=== PATIENT | male | born 1950 | race Caucasian/White ===

== ENCOUNTER → 2025-01-31 | Outpatient (CLI) | payer OTHER ==
--- NOTE | 2025-01-31 10:34 | HMCIMG ---
MR ANKLE RIGHT WO HISTORY: Right ankle pain COMPARISON: None TECHNIQUE: MRI of the right ankle was performed utilizing multiple pulse sequences in axial, coronal and sagittal planes. Patient was not given contrast through intravenous route. FINDINGS: Normal signal intensity is seen of the visualized bony structure. No appreciable amount of joint effusion is seen. No evidence of soft tissue swelling is seen. There is fluid noted within the tendon sheath of flexor hallucis longus tendon consistent with tenosynovitis. There is thickening of the Achilles tendon consistent with tendinosis. No rupture or Achilles tendon is seen. Posterior tibialis, flexor hallucis longus and flexor digitorum longus tendons are intact. The peroneus longus and brevis tendons are intact. Anterior talofibular ligament and calcaneofibular ligaments are intact. IMPRESSION: 1. 100 suggestive of tenosynovitis of the flexor hallucis longus tendon. Achilles tendinosis. DJD.
== END | disposition home or self-care (01) ==
LOC: RAH 08:10
PROVIDERS: ATTEND Internal Medicine Rheumatology
DX: M19.071 Primary osteoarthritis, right ankle and foot (principal); M25.571 Pain in right ankle and joints of right foot
CPT/HCPCS: 73721

== ENCOUNTER 2025-02-16 11:33 | Emergency (ER) | payer OTHER ==
[~2025-02-16] VITALS: Ht 175.3 cm; Wt 77.1 kg
--- NOTE | 2025-02-16 12:55 | HMCIMG ---
RIGHT THIRD FINGER RADIOGRAPHS - 3 VIEWS INDICATION: Third digit laceration COMPARISON: None FINDINGS/IMPRESSION: AP, lateral, and oblique views. Slightly displaced nominally comminuted transverse fracture through the proximal shaft of the third distal phalanx, but no evidence for joint subluxation.
[2025-02-16 13:42] LABS: BASOPHILS # (AUTO) 0.04 K/uL (0.00-0.20); BASOPHILS % (AUTO) 0.4 % (0.0-5.0); EOSINOPHILS % (AUTO) 2.2 % (0.0-8.0); HEMATOCRIT 37.5 % (42-54); IMMATURE GRANULOCYTE ABSOLUTE 0.06 K/uL (0-1); LYMPHOCYTES # (AUTO) 2.8 K/uL (1.0-4.8); LYMPHOCYTES % (AUTO) 31.3 % (21.0-51.0); MEAN CORPUSCULAR HEMOGLOBIN 28.2 pg (27.0-33.0); MEAN CORPUSCULAR HGB CONC 31.5 g/dL (32.0-36.0); MEAN CORPUSCULAR VOLUME 89.7 fL (79-99); MONOCYTES # (AUTO) 1.1 K/uL (0.1-1.0); MONOCYTES % (AUTO) 11.7 % (3.0-13.0); NEUTROPHILS # (AUTO) 4.8 K/uL (1.8-7.7); NEUTROPHILS % (AUTO) 53.7 % (40.0-77.0); PLATELET COUNT (AUTO) 224 K/uL (130-400); RED BLOOD CELL COUNT(AUTO) 4.18 MIL/uL (4.50-6.20)
--- NOTE | 2025-02-16 13:52 | ERN ---
General Chief Complaint: Laceration/Avulsion Stated Complaint: LACERATION, POSSIBLE BROKEN FINGER Time Seen by MD: 11:33 Source: patient History of Present Illness Initial Comments Patient is a 74-year-old male coming in to be evaluated for finger fracture evaluation. Per patient he was evaluated five days ago and was told he had a fracture of his right middle finger. There was a laceration present was repaired patient went to be evaluated by Dr. Roldan software implementation specialist but was told he was not able to be seen. Patient is here for further evaluation. Allergies: Coded Allergies: No Known Drug Allergies (Unverified Allergy, Unknown, 02/16/25) Past Medical History Past Medical History: Hypertension Past Surgical History: None ROS Dictation CONSTITUTIONAL: No chills, no fever, no weakness, no diaphoresis, no malaise. HEAD/FACE: No signs of trauma. EENT: No eye pain, no blurred vision, no tearing, no double vision, no ear pain, no ear discharge, no nose pain, no nasal congestion, no throat pain, no throat swelling, no mouth pain. RESPIRATORY: No cough, no orthopnea, no SOB, no stridor, no wheezing. CARDIOVASCULAR: No chest pain, no edema, no palpitations, no syncope. GASTROINTESTINAL/ABDOMINAL: No abdominal pain, no constipation, no diarrhea, no nausea, no vomiting. GENITOURINARY: No abnormal discharge, no dysuria, no frequent urination, no hematuria. No complaints of pain in the genitals. MUSCULOSKELETAL: No back pain, no gout, joint pain, no joint swelling, no muscle pain, no muscle stiffness, no neck pain. INTEGUMENTARY: No change in color, no change in hair/nails, no dryness, no lesion, no lumps, no rash. NEUROLOGICAL/PSYCH: No anxiety, not depressed, no emotional problem, no headache, no numbness, no pre-existing deficit, no history of seizures, no margaret mors, no weakness. HEMATOLOGIC/LYMPHATIC: Not anemic, no history of blood clots, no apparent bleeding, no bruising, glands not swollen. All Systems Negative, Except as Noted. Physical Exam Physical Exam Dictation VITAL SIGNS: Reviewed. GENERAL APPEARANCE: Alert, oriented x3, no acute distress, obese. HEAD AND FACE: Non-traumatic. EYES: PERRL, pink conjunctivas, eyelid no trauma, anterior chamber clear. EARS: Pinnas intact and no signs of trauma or erythema. Ear canals clear and no discharge. TMs no erythema. NOSE: No discharge, no bleeding. OROPHARYNX: Mouth normal, teeth no caries, tongue pink. Pharynx clear, no erythema. Tonsils no exudates, no abscesses noted. Mucous membrane moist. NECK: Supple, non-tender, no thyromegaly, no masses, no JVD, no bruits. BREAST: Deferred. CHEST: No tenderness, no crepitus, no paradoxical movement, no retractions. LUNGS: Clear, well-ventilated, symmetric, no rales, no wheezing, no rhonchi, no stridor, good breath sounds bilaterally. HEART: Regular rate, regular rhythm, no murmur, no gallops. VASCULAR: No peripheral edema. ABDOMEN: Soft, positive bowel sounds, nondistended, no guarding, nontender, no rebound, no masses no hepatomegaly, no splenomegaly, no Soni's sign, no hernias. RECTAL: Deferred. GENITAL: Deferred. NEUROLOGICAL: Normal speech, gross motor function intact, gross sensory function intact. MUSCULOSKELETAL: Neck nontender, full range of motion, back nontender, full range of motion. EXTREMITIES: Nontender, full range of motion. Right hand middle digit swelling SKIN: Color pink, dry, no turgor, no rash, no lacerations, no abrasions, no contusions. LYMPHATICS: Deferred. Results Laboratory and Microbiology Lab and Micro Result Laboratory Tests Test 02/16/25 13:31 White Blood Count 9.0 K/uL (4.8-10.8) Red Blood Count 4.18 MIL/uL (4.50-6.20) L Hemoglobin 11.8 g/dL (14.0-18.0) L Hematocrit 37.5 % (42-54) L Mean Corpuscular Volume 89.7 fL (79-99) Mean Corpuscular Hemoglobin 28.2 pg (27.0-33.0) Mean Corpuscular Hemoglobin Concent 31.5 g/dL (32.0-36.0) L Red Cell Distribution Width 15.0 % (11.0-15.5) Platelet Count 224 K/uL (130-400) Mean Platelet Volume 10.2 fL (7.5-10.5) Immature Granulocyte % (Auto) 0.7 % (0-1) Neutrophils (%) (Auto) 53.7 % (40.0-77.0) Lymphocytes (%) (Auto) 31.3 % (21.0-51.0) Monocytes (%) (Auto) 11.7 % (3.0-13.0) Eosinophils (%) (Auto) 2.2 % (0.0-8.0) Basophils (%) (Auto) 0.4 % (0.0-5.0) Neutrophils # (Auto) 4.8 K/uL (1.8-7.7) Lymphocytes # (Auto) 2.8 K/uL (1.0-4.8) Monocytes # (Auto) 1.1 K/uL (0.1-1.0) H Eosinophils # (Auto) 0.20 K/uL (0.00-0.70) Basophils # (Auto) 0.04 K/uL (0.00-0.20) Absolute Immature Granulocyte (auto 0.06 K/uL (0-1) Nucleated Red Blood Cells 0.0 % (0.0-0.19) Sodium Level 133 mmol/L (136-145) L Potassium Level 4.0 mmol/L (3.5-5.1) Chloride Level 98 mmol/L (101-111) L Carbon Dioxide Level 31 mmol/L (21-32) Blood Urea Nitrogen 12 mg/dL (7-18) Creatinine 1.0 mg/dL (0.5-1.3) Glomerular Filtration Rate Calc 78 mL/min (>90) Random Glucose 91 mg/dL (70-105) Total Calcium 9.2 mg/dL (8.5-10.1) Labs Reviewed?: Yes EKG/XRAY/US/CT/MRI X-RAY Comment [place] [id number] [place] [id number] IMAGING REPORT Signed PATIENT: ELIJAH PINEDA MR#: [id number] : 1950 SEX: M AGE: 74 LOCATION: [facility] ORDER 1143 STATUS: REG ER REPORT#: [id number] SERVICE 1144 REASON: FRACTURE ORDERING PHYSICIAN: SUSANNA COURTNEY MD PROCEDURE: FINGER RT - FINGER(S) 2+VWS RT RIGHT THIRD FINGER RADIOGRAPHS - 3 VIEWS INDICATION: Third digit laceration COMPARISON: None FINDINGS/IMPRESSION: AP, lateral, and oblique views. Slightly displaced nominally comminuted transverse fracture through the proximal shaft of the third distal phalanx, but no evidence for joint subluxation. DICTATED BY: KIERSTEN BARNEY MD DATE: 02/16/25 1252 ELECTRONICALLY SIGNED BY: KIERSTEN BARNEY MD DATE: 02/16/25 1255 MDM MDM: Differential diagnosis: Laceration, abrasion, fracture, Patient is a 74-year-old male coming in to be evaluated for finger fracture. Patient was seen as outpatient by his PCP and diagnosed with an open fracture patient states that the laceration was repaired with sutures five days ago. He states he was not able to get an orthopedic consult as the orthopedic he was referred to did not want to cm due to possibility of an open fracture. Today he comes in for further evaluation x-ray did disclose the fracture of the distal phalanx. Laboratory workup within normal limits patient has been on antibiotics wound was evaluated scab formation was seen. Spoke to Dr. Braga orthopedic on- call states it is okay for patient to follow up as outpatient. Wound was cleaned and dressed and splinted back. ED Course Orders Procedure Category Date Status Time Cbc With Differential LAB 02/16/25 Complete 11:44 Basic Metabolic Panel LAB 02/16/25 Complete 11:44 Finger(S) 2+Vws Rt RAD 02/16/25 Resulted 11:44 Vital Signs Date Time Temp Pulse Resp B/P (MAP) Pulse Ox O2 Delivery O2 Flow Rate FiO2 02/16/25 12:00 98.1 63 20 153/85 98 DX & DISP Disposition: Discharge Departure Impression: Primary Impression: Phalanx, distal fracture of finger Condition: Stable Scripts Cephalexin Monohydrate (Keflex) 500 Mg Cap 1 CAP PO TID for 10 Days, #30 CAP 0 Refills Prov: SUSANNA COURTNEY MD 02/16/25 Additional Instructions: FOLLOW-UP WITH PRIMARY CARE PROVIDER IN 1 TO 2 DAYS. TAKE MEDICATIONS DIRECTED HERE IN THE EMERGENCY ROOM. OKAY TO CONTINUE HOME MEDICATIONS UNLESS OTHERWISE DISCUSSED DURING YOUR VISIT IN THE EMERGENCY ROOM TODAY. RETURN TO YOUR NEAREST EMERGENCY ROOM IF SYMPTOMS WORSEN OR IF THERE IS NO IMPROVEMENT. CALL 911 IF YOU NEED IMMEDIATE ASSISTANCE. TAKE TYLENOL [id number] NEEDED AND IF NO CONTRAINDICATIONS ARE PRESENT. INCREASE ORAL HYDRATION. A WOUND CULTURE OR URINE CULTURE WAS ORDERED HERE IN THE EMERGENCY ROOM DEPARTMENT PLEASE FOLLOW-UP WITH PRIMARY CARE PROVIDER AND ADVISE THEM TO GET REPEAT PORTS FROM OUR FACILITY. IF YOU HAD ANY RON WRAP/SPLINTS THAT WERE APPLIED HERE, PLEASE DO NOT REMOVE THEM UNTIL YOU SEE YOUR PRIMARY CARE OR SPECIALTY. Referrals: Referrals: SELF,REFERRAL (PCP) MANDI KIMBROUGH MD, WILLIAM A DO Time of Disposition: 15:57 SUSANNA COURTNEY MD Feb 16, 2025 13:52
[2025-02-16] MEDS ORDERED: CEPH500B PO (15:57)
[2025-02-16 15:58] VITALS: BP 149/76; PULSE 65; RESP 20; TEMP 98.1; O2SAT 98
== END 2025-02-16 16:18 | disposition home or self-care (01) ==
LOC: EDH 11:33
DX: S62.634A Displaced fracture of distal phalanx of right ring finger, initial encounter for closed fracture (principal); I10 Essential (primary) hypertension; X58.XXXA Exposure to other specified factors, initial encounter; Y93.89 Activity, other specified; Y92.89 Other specified places as the place of occurrence of the external cause; Y99.8 Other external cause status
CPT/HCPCS: 29130; 36415; 73140; 80048; 85025; 99284